=== PATIENT | male | born 1990 | race Two or more races ===

== ENCOUNTER 2022-06-30 06:44 | Day surgery (SDC) | payer OTHER ==
[~2022-06-30] VITALS: Ht 152.4 cm; Wt 68.0 kg
[~2022-06-30 06:44] MED LIST: IRBESARTAN-HCT1 EACH PO
== END 2022-06-30 15:35 | disposition home or self-care (01) ==
LOC: CIR.AMB 06:44
PROVIDERS: ATTEND Orthopaedic Surgery
DX: M25.312 Other instability, left shoulder (principal); M75.92 Shoulder lesion, unspecified, left shoulder; I10 Essential (primary) hypertension; Z20.822 Contact with and (suspected) exposure to COVID-19